=== PATIENT | female | born 1955 | race Caucasian/White ===

== ENCOUNTER → 2019-02-18 15:25 | Outpatient (CLI) | payer OTHER, MEDICARE, SELFPAY ==
--- NOTE | 2019-02-18 15:28 | DI.RAD.S_ITS ---
PROCEDURE: XR KNEE RT 3V INDICATIONS: lateral swelling TECHNIQUE: 3 views of the knee were acquired. COMPARISON: None. FINDINGS: Bones: No fractures or dislocations. No suspicious bony lesions. Soft tissues: No joint effusion. No suspicious soft tissue calcifications. IMPRESSION: Minimal medial compartment joint height reduction, no effusion or loose body found. No trauma seen. A source of lateral swelling is not identified. Dictated by: Bayron Luz M.D. on 02/18/2019 at 16:36 Approved by: Bayron Luz M.D. on 02/18/2019 at 16:37
== END ==
PROVIDERS: Family Provider Family Medicine; PCP Family Medicine; Visit Provider Family Medicine
DX: M25.561 Pain in right knee (principal); M79.89 Other specified soft tissue disorders
CPT/HCPCS: 73562

== ENCOUNTER → 2019-03-04 09:50 | Outpatient (CLI) | payer OTHER, SELFPAY ==
--- NOTE | 2019-03-04 09:52 | DI.RAD.S_ITS ---
PROCEDURE: XR CHEST 2V INDICATIONS: Chest wall pain TECHNIQUE: 2 views of the chest were acquired. COMPARISON: [facility], MR, T-SPINE WITHOUT CONTRAST, 10/23/2017, 8:55. FINDINGS: Surgical changes and devices: Postoperative changes of the proximal left humerus. Lungs and pleura: Lungs are clear. No pleural effusions or pneumothorax. There are changes compatible with chronic obstructive pulmonary physiology. Mediastinum: Mediastinal contours are normal. Heart size is normal. Bones and chest wall: No suspicious bony abnormalities. Diffuse osteopenia. Stable appearance of chronic midthoracic spine compression fracture. Soft tissues appear unremarkable. IMPRESSION: Chest without acute cardiopulmonary abnormalities. Changes compatible with chronic obstructive pulmonary physiology. No radiographic abnormalities identified to explain patient's left chest wall pain. Dictated by: Preston Akbar M.D. on 03/04/2019 at 12:03 Approved by: Preston Akbar M.D. on 03/04/2019 at 12:05
== END ==
PROVIDERS: Family Provider Family Medicine; PCP Family Medicine; Visit Provider Registered Nurse
DX: R07.89 Other chest pain (principal)
CPT/HCPCS: 71046

== ENCOUNTER → 2019-04-24 09:47 | Outpatient (CLI) | payer OTHER, SELFPAY ==
--- NOTE | 2019-04-24 09:50 | DI.MRI.S_ITS ---
PROCEDURE: MR KNEE RT WO CON INDICATIONS: lateral swelling TECHNIQUE: Noncontrast sagittal PD fast spin echo and T2 fast spin echo with fat saturation, sagittal 3-D FLASH with fat saturation; coronal T1 spin echo and PD fast spin echo with fat saturation, and axial PD fast spin echo with fat saturation through the knee. COMPARISON: [facility], CR, XR KNEE RT 3V, 02/18/2019, 15:31. FINDINGS: Image quality: Excellent. Menisci: There is complex tear involving the body and posterior horn of the lateral meniscus. There is intrasubstance degeneration or degenerative tear in the body and posterior horn body of the medial meniscus. The meniscal root ligaments appear intact. Cruciate ligaments: The anterior and posterior cruciate ligaments appear intact. Medial structures: The medial collateral ligament appears intact. The semimembranosus tendon insertionsand meniscocapsular junction appear intact. Visualized portions of the pes anserinus tendons appear normal. No abnormal bursal fluid. Lateral structures: The lateral collateral ligament and the biceps femoris tendon appear intact. The popliteus tendon appears normal; the popliteofibular ligament appears intact. Iliotibial band appears normal. Anterior structures: The quadriceps and patellar tendons appear intact. Patellar alignment is normal. No femoral trochlear dysplasia or ventral trochlear prominence. No edema in the infrapatellar fat pad. Bones and cartilage: No fractures. There is mild edema in the lateral femoral condyle. 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 Joint space: There is small to moderate knee joint effusion. There is a small Caceres's cyst. Normal appearing synovial plicae are incidentally noted. IMPRESSION: 1. Complex tear involving the body and posterior horn of the lateral meniscus. 2. Intrasubstance degeneration of the body and posterior medial meniscus. 3. Tricompartmental cartilage thinning and fibrillation. 4. Small to moderate knee joint effusion. 5. A small Caceres's cyst. Dictated by: Violette Arshad M.D. on 04/24/2019 at 11:58 Approved by: Violette Arshad M.D. on 04/24/2019 at 17:26
== END ==
PROVIDERS: PCP Family Medicine; Visit Provider Family Medicine
DX: M25.461 Effusion, right knee (principal); S83.271A Complex tear of lateral meniscus, current injury, right knee, initial encounter; S83.241A Other tear of medial meniscus, current injury, right knee, initial encounter; M71.21 Synovial cyst of popliteal space [Baker], right knee
CPT/HCPCS: 73721

== ENCOUNTER → 2019-05-16 10:24 | Outpatient (CLI) | payer OTHER, SELFPAY | PROVIDERS: PCP Family Medicine; Visit Provider Nurse Practitioner Family | DX: M81.0 Age-related osteoporosis without current pathological fracture (principal) | CPT/HCPCS: 77080 ==

== ENCOUNTER → 2019-11-28 17:50 | Outpatient (CLI) | payer OTHER, SELFPAY ==
--- NOTE | 2019-11-28 17:54 | DI.MRI.S_ITS ---
PROCEDURE: MR KNEE LT WO CON INDICATIONS: Knee pain TECHNIQUE: Noncontrast sagittal PD fast spin echo and T2 fast spin echo with fat saturation, sagittal 3-D FLASH with fat saturation; coronal T1 spin echo and PD fast spin echo with fat saturation, and axial PD fast spin echo with fat saturation through the knee. COMPARISON: [facility], MR, MR KNEE RT WO CON, 11/28/2019, 18:22. FINDINGS: Image quality: Excellent. Menisci: Oblique tear involving posterior horn of medial meniscus is seen extending to the inferior articulating surface. There is no focal lateral meniscal tear. The meniscal root ligaments appear intact. Cruciate ligaments: The anterior and posterior cruciate ligaments appear intact. Medial structures: The medial collateral ligament appears intact. The posterior oblique ligament, semimembranosus tendon insertions, oblique popliteal ligament, and meniscocapsular junction appear intact. Visualized portions of the pes anserinus tendons appear normal. No abnormal bursal fluid. Lateral structures: The lateral collateral ligament, long and short heads of the biceps femoris tendon appear intact. The popliteus tendon appears normal; the popliteofibular ligament appears intact. The posterosuperior and anteroinferior popliteomeniscal fascicles appear intact. The arcuate and fabellofibular ligaments appear intact, on either side of the lateral inferior geniculate artery. Iliotibial band appears normal. Anterior structures: The quadriceps and patellar tendons appear intact. Patellar alignment is normal. No femoral trochlear dysplasia or ventral trochlear prominence. No edema in the infrapatellar fat pad. Bones and cartilage: There is marrow edema involving posterior and lateral portion of proximal tibia extending to lateral tibial plateau. No discrete fracture line is seen. No other area of abnormal marrow signal. Mild to moderate tricompartmental osteoarthritis and chondromalacia is seen most prominent involving medial femoral tibial compartment. Joint space: There is physiologic knee joint fluid. No Ccaeres's cyst. Normal appearing synovial plicae are incidentally noted. IMPRESSION: 1. 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 Suggestion of bony contusion involving posterior lateral aspect of proximal tibia extending to lateral tibial plateau. 2. Oblique tear involving posterior horn medial meniscus extending to inferior articulating surface. No focal lateral meniscal tear. 3. Cruciate ligaments are intact. Dictated by: Davis Beaver M.D. on 12/01/2019 at 9:11 Approved by: Davis Beaver M.D. on 12/01/2019 at 9:18
--- NOTE | 2019-11-28 17:54 | DI.MRI.S_ITS ---
PROCEDURE: MR KNEE RT WO CON INDICATIONS: Knee pain TECHNIQUE: Noncontrast sagittal PD fast spin echo and T2 fast spin echo with fat saturation, sagittal 3-D FLASH with fat saturation; coronal T1 spin echo and PD fast spin echo with fat saturation, and axial PD fast spin echo with fat saturation through the knee. COMPARISON: [facility], MR, MR KNEE RT WO CON, 04/24/2019, 9:53. FINDINGS: Image quality: Excellent. Menisci: The oblique tear involving posterior horn of medial meniscus is seen extending to inferior articulating surface. There is complex tear involving anterior horn of lateral meniscus extending to superior articulating surface. Signal abnormality is also noted in posterior horn of lateral meniscus extending to superior and inferior articulating surfaces with adjacent lobulated cystic structure measures 1.5 x 1 x 2.2 cm in size and may represent complex tear involving posterior horn lateral meniscus with perimeniscal cyst. The meniscal root ligaments appear intact. Cruciate ligaments: The anterior and posterior cruciate ligaments appear intact. Medial structures: The medial collateral ligament appears intact. The posterior oblique ligament, semimembranosus tendon insertions, oblique popliteal ligament, and meniscocapsular junction appear intact. Visualized portions of the pes anserinus tendons appear normal. No abnormal bursal fluid. Lateral structures: The lateral collateral ligament, long and short heads of the biceps femoris tendon appear intact. The popliteus tendon appears normal; the popliteofibular ligament appears intact. The posterosuperior and anteroinferior popliteomeniscal fascicles appear intact. The arcuate and fabellofibular ligaments appear intact, on either side of the lateral inferior geniculate artery. Iliotibial band appears normal. Anterior structures: The quadriceps and patellar tendons appear intact. Patellar alignment is normal. No femoral trochlear dysplasia or ventral trochlear prominence. No edema in the infrapatellar fat pad. Bones and cartilage: No bone marrow contusions or fractures. Mild to moderate tricompartmental osteoarthritis and chondromalacia is seen most prominent involving medial femoral tibial compartment. Mild to moderate chondromalacia patella is also seen. Joint space: There is small amount of joint fluid. No Caceres's cyst. Normal appearing synovial plicae are incidentally noted. IMPRESSION: 1. Oblique tear involving posterior horn of medial meniscus extending to inferior articulating surface. 2. Complex tear involving anterior horn and posterior horn of lateral meniscus extending to both superior and inferior articulating surfaces with perimeniscal cyst adjacent to posterior horn as above. 3. Cruciate ligaments are intact. 4. Mild to moderate tricompartmental osteoarthritis and chondromalacia most prominent in the medial femoral tibial compartment. Small joint effusion, no gross loose body. Dictated by: Davis Beaver M.D. on 12/01/2019 at 9:04 Approved by: Davis Beaver M.D. on 12/01/2019 at 9:10
== END ==
PROVIDERS: PCP Family Medicine; Referring Provider Family Medicine; Visit Provider Family Medicine
DX: M25.561 Pain in right knee (principal); M25.562 Pain in left knee; S83.242A Other tear of medial meniscus, current injury, left knee, initial encounter; S83.271A Complex tear of lateral meniscus, current injury, right knee, initial encounter; S83.241A Other tear of medial meniscus, current injury, right knee, initial encounter; M17.0 Bilateral primary osteoarthritis of knee; M94.262 Chondromalacia, left knee; M94.261 Chondromalacia, right knee; M25.461 Effusion, right knee
CPT/HCPCS: 73721

== ENCOUNTER → 2020-09-01 10:37 | Outpatient (CLI) | payer OTHER, SELFPAY ==
[2020-09-01 11:30] LABS: Add Manual Diff / Slide Review NO; Basophils Absolute Auto 0 /uL (0-100); Basophils Percent Auto 0.8 % (0-2); Eosinophils Absolute Auto 100 /uL (0-450); Eosinophils Percent Auto 2.7 % (2-4); Hematocrit 39.9 % (36-46); Hemoglobin 13.3 g/dL (12.0-16.0); Lymphocytes Absolute Auto 1500 /uL (1100-4500); Lymphocytes Percent Auto 29.1 % (25-40); Mean Corpuscular HGB Conc 33.2 % (30-36); Mean Corpuscular Hemoglobin 32.5 PG (26-34); Mean Corpuscular Volume 97.9 fL (80-100); Monocytes Absolute Auto 500 /uL (0-900); Monocytes Percent Auto 9.6 % (3-14); Neutrophils Absolute Auto 3000 /uL (1500-7000); Neutrophils Percent Auto 57.8 % (50-75); Platelet Count 203 X10^3/uL (150-400); Red Blood Cell Count 4.08 X10^6/uL (4.0-5.2); Red Cell Distribution Width 14.6 % (11.6-14.8); White Blood Cell Count 5.2 X10^3/uL (4.5-11.0)
[2020-09-01 11:50] LABS: Alanine Aminotransferase 13 IU/L (<35); Albumin 4.5 g/dL (3.5-5.0); Albumin Globulin Ratio 1.5 (1.0-2.8); Alkaline Phosphatase 87 U/L (38-126); Aspartate Aminotransferase 27 IU/L (14-36); BUN Creatinine Ratio 21.4 (6-22); Bilirubin Total 0.9 mg/dL (0.2-1.3); Blood Urea Nitrogen 18 mg/dL (7-17); Calcium 9.4 mg/dL (8.4-10.2); Carbon Dioxide 29 mmol/L (22-32); Chloride 101 mmol/L (98-107); Estimated Glomerular Filt Rate > 60.0 mL/min (>60); Globulin 3.1 g/dL (1.7-4.1); Glucose 99 mg/dL (80-110); HEMOLYSIS < 15 (0-50); Potassium 4.6 mmol/L (3.4-5.1); Sodium 136 mmol/L (137-145); Total Protein 7.6 g/dL (6.3-8.2)
[2020-09-01 12:20] LABS: Thyroid Stimulating Hormone 0.473 uIU/mL (0.47-4.68)
[2020-09-02 06:36] LABS: Adrenocorticotropic Hormone 18.4 pg/mL (7.2-63.3)
== END ==
PROVIDERS: PCP Family Medicine; Referring Provider Family Medicine; Visit Provider Family Medicine
DX: R53.83 Other fatigue (principal)
CPT/HCPCS: 36415; 80053; 82024; 82533; 84443; 85025